=== PATIENT | male | born 1995 | race Two or more races ===

== ENCOUNTER 2017-04-29 19:49 | Emergency (ER) | payer OTHER ==
[2017-04-29] MEDS: IV NORMAL SALINE 1000ML BAG 1,000 ML IV (20:19)
[2017-04-29 20:20] LABS: ADD MAN DIFF? NO
[2017-04-29 20:24] LABS: BASO % 1 % (0-3); EOS % 0 % (0-3); HEMATOCRIT 40.9 % (39.0-53.0); HEMOGLOBIN 14.1 g/dL (13.0-17.5); LYMPH # 0.9 x10^3/uL (1.0-4.8); LYMPH % 18 % (24-48); MEAN CORPUSCULAR HEMOGLOBIN 32 pg (25-35); MEAN CORPUSCULAR HGB CONC 35 g/dL (31-37); MEAN CORPUSCULAR VOLUME 92 fL (79-100); MONO # 0.7 x10^3/uL (0.0-1.1); MONO % 15 % (0-9); NEUT # 3.4 x10^3uL (1.8-7.7); NEUT % 67 % (31-73); PLATELET COUNT 132 x10^3/uL (140-400); RED BLOOD COUNT 4.44 x10^6/uL (4.30-5.70); RED CELL DISTRIBUTION WIDTH 13.5 % (11.5-14.5); WHITE BLOOD COUNT 5.1 x10^3/uL (4.0-11.0)
[2017-04-29 20:37] LABS: ANION GAP 11 (6-14); BLOOD UREA NITROGEN 12 mg/dL (8-26); CALCIUM 8.9 mg/dL (8.5-10.1); CARBON DIOXIDE 26 mmol/L (21-32); CHLORIDE 103 mmol/L (98-107); CREATININE 1.2 mg/dL (0.7-1.3); GLUCOSE 100 mg/dL (70-99); POTASSIUM 3.8 mmol/L (3.5-5.1); SODIUM 140 mmol/L (136-145)
[2017-04-29 20:43] LABS: ALBUMIN 3.8 g/dL (3.4-5.0); ALK PHOS 57 U/L (46-116); ALT (SGPT) 26 U/L (16-63); AST (SGOT) 21 U/L (15-37); DIRECT BILIRUBIN 0.1 mg/dL (0.0-0.2); TOTAL BILIRUBIN 0.6 mg/dL (0.2-1.0); TOTAL PROTEIN 7.8 g/dL (6.4-8.2)
[2017-04-29 20:45] LABS: LACTIC ACID 0.9 mmol/L (0.4-2.0)
[2017-04-29 20:52] LABS: INFLUENZA A PATIENT POSITIVE (NEGATIVE); INFLUENZA B PATIENT NEGATIVE (NEGATIVE); OBC FLU VALID
[2017-04-29] MEDS: OSELTAMIVIR 75 MG CAPSULE PO (21:07)
[2017-04-29] MEDS: ACETAMINOPHEN 500 MG TABLET PO (22:30)
== END 2017-04-29 22:30 | disposition home or self-care (01) ==
LOC: ER 19:49
DX: J09.X2 Influenza due to identified novel influenza A virus with other respiratory manifestations (principal); F12.10 Cannabis abuse, uncomplicated
CPT/HCPCS: 36415; 71046; 80048; 80076; 83605; 85025; 87040; 87804; 87804-59; 96360; 99285-25; J7030